=== PATIENT | male | born 1985 | race Caucasian/White ===

== ENCOUNTER 2017-01-11 11:21 | Emergency (ER) | payer OTHER ==
[~2017-01-11] VITALS: Ht 182.9 cm; Wt 86.2 kg
[2017-01-11 12:36] VITALS: BP 145/90
== END 2017-01-11 12:36 | disposition home or self-care (01) ==
LOC: ED 11:21
DX: S62.316A Displaced fracture of base of fifth metacarpal bone, right hand, initial encounter for closed fracture (principal); F12.10 Cannabis abuse, uncomplicated; W22.01XA Walked into wall, initial encounter; Y93.89 Activity, other specified; Y92.89 Other specified places as the place of occurrence of the external cause; Y99.8 Other external cause status

== ENCOUNTER 2018-12-07 05:42 | Emergency (ER) | payer OTHER ==
[~2018-12-07] VITALS: Ht 182.9 cm; Wt 85.3 kg
[2018-12-07 05:45] VITALS: Ht 182.9 cm; Wt 85.3 kg
[2018-12-07 07:19] VITALS: BP 127/85
== END 2018-12-07 07:19 | disposition home or self-care (01) ==
LOC: ED 05:42
DX: R07.89 Other chest pain (principal)
CPT/HCPCS: J1885

== ENCOUNTER 2019-11-05 12:47 | Emergency (ER) | payer OTHER ==
[~2019-11-05] VITALS: Ht 182.9 cm; Wt 88.5 kg
[2019-11-05 13:10] VITALS: Ht 182.9 cm; Wt 88.5 kg
[2019-11-05 14:23] VITALS: BP 134/81
== END 2019-11-05 14:23 | disposition home or self-care (01) ==
LOC: ED 12:47
DX: K12.2 Cellulitis and abscess of mouth (principal)
CPT/HCPCS: J2930